=== PATIENT | male | born 1975 | race Caucasian/White ===

== ENCOUNTER 2022-09-01 00:19 | Day surgery (SDC) | payer BC, SELFPAY ==
[2022-08-21 14:56] VITALS: BMI 29.0
[2022-09-01 07:07] VITALS: BP 131/79; PULSE 74; RESP 20; TEMP 36.2; O2SAT 98; BMI 29.0
--- NOTE | 2022-09-01 07:14 | WPDANESEPPF ---
Anes - Initial Pre Proc Eval Procedure: Operation Date: 09/01/22 07:30 Proposed Procedures p Screening Colonoscopy - Liborio Hill MD Date/Time: 09/01/22 07:14 Surgeon: Liborio Hill MD Pre Op Diagnosis: neoplasm screening Patient Data Age: 46 Gender: M Height: 1.85 m Weight: 99.7 kg Last Vital Signs Temp 36.2 C L 09/01/22 07:07 Pulse 74 09/01/22 07:07 Resp 20 09/01/22 07:07 BP 131/79 09/01/22 07:07 Pulse Ox 98 09/01/22 07:07 O2 Del Method Room Air 09/01/22 07:07 Allergies Allergy/AdvReac Type Severity Reaction Status Date / Time No Known Allergies Allergy Verified 09/01/22 07:04 Home Medications Medication Instructions Recorded Confirmed Type omeprazole magnesium 20 mg 20 mg PO DAILY 06/06/22 09/01/22 History capsule,delayed release cetirizine 10 mg tablet (Zyrtec) 10 mg PO DAILY 08/21/22 09/01/22 History multivitamin 1 tablet PO DAILY 08/21/22 09/01/22 History vitamin D3 250 mcg (10,000 1 cap PO DAILY 08/21/22 09/01/22 History unit)-vitamin K2 45 mcg capsule amlodipine 5 mg tablet See Rx Instructions .Route 08/25/22 09/01/22 Rx .COMPLEX #90 tabs losartan 100 mg tablet See Rx Instructions .Route 08/25/22 09/01/22 Rx .COMPLEX #90 tabs nebivolol 10 mg tablet See Rx Instructions .Route 08/25/22 09/01/22 Rx .COMPLEX #90 tabs Patient hx anesthesia problems: none Family hx anesthesia problems: none Results Review: All pre-operative results and documents have been reviewed as part of the pre-operative evaluation. 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[employer] Gender identity (if verbalized by the patient): Male Spiritual care concerns: No Agree to blood products: Yes Anes - Eval Final PreProcedure Day of Procedure 09/01/22 07:14 Patient weight: overweight Heart: regular rate and rhythm Lungs: clear to auscultation and normal air movement Airway: Mallampati scale class II Neurological: alert and oriented Last oral intake: >/= 8 hours ASA classification: II Emergent: no Anesthetic plan: proceed Anesthesia type and monitoring: general GIVS Results Review: All pre-operative results and documents have been reviewed as part of the pre-operative evaluation. Informed Consent: The patient's anesthetic plan and its attendant risks and benefits were discussed with the patient/family/POA. Questions were solicited and answers provided to the satisfaction of the patient/family/POA.
--- NOTE | 2022-09-01 07:28 | PM.HPGS ---
History of Present Illness History of Present Illness Consent: Risks, benefits, and alternatives have been discussed and questions answered. Patient agrees to proceed with procedure. Chief complaint: neoplasm screening Narrative: Phani Oneill is a 46 year old male here for first screening colonoscopy Review of Systems Constitutional: Constitutional: Denies headache(s) and Denies weakness Eyes: Eyes: Denies blurry vision ENT: Reports Normal hearing present, Denies headache(s) and Denies neck pain Cardiovascular: Cardiovascular: Denies chest pain and Denies dyspnea Respiratory: Respiratory: Denies dyspnea Gastrointestinal: Gastrointestinal: Reports no additional gastrointestinal complaints Genitourinary: Genitourinary: Denies dysuria Musculoskeletal: Musculoskeletal: Denies neck pain Integumentary/Breasts: Skin/Breast: Denies dry skin Neurologic: Reports Normal hearing present, Denies headache(s) and Denies weakness Psychiatric: Psychiatric: Denies anxiety Endocrine: Endocrine: Denies change in body appearance Hematologic/Lymphatic: Hematologic/Lymphatic: Denies easy bleeding Allergic/Immunologic: Allergic/Immunologic: Denies urticaria [facility] Past Medical History Medical History (Updated 09/01/22 @ 07:28 by Liborio Hill MD) Allergies Colon cancer screening GERD (gastroesophageal reflux disease) Hypertension Surgical History Surgical History H/O sinus surgery (2006) Family History Family History Father Hypertension Alzheimer disease Mother Hypertension Grandparent Malignant neoplasm of prostate Social History Social History Smoking status: Never smoker Alcohol intake: current Drinks per week: 3 Alcohol use details: vodka Substance use: never Substance use type: does not use Living arrangements: with family Occupation/Education: occupation 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[employer] Gender identity (if verbalized by the patient): Male Spiritual care concerns: No Agree to blood products: Yes Meds Home Medications and Allergies Home Medications Medication Instructions Recorded Confirmed Type omeprazole magnesium 20 mg 20 mg PO DAILY 06/06/22 09/01/22 History capsule,delayed release cetirizine 10 mg tablet (Zyrtec) 10 mg PO DAILY 08/21/22 09/01/22 History multivitamin 1 tablet PO DAILY 08/21/22 09/01/22 History vitamin D3 250 mcg (10,000 1 cap PO DAILY 08/21/22 09/01/22 History unit)-vitamin K2 45 mcg capsule amlodipine 5 mg tablet See Rx Instructions .Route 08/25/22 09/01/22 Rx .COMPLEX #90 tabs losartan 100 mg tablet See Rx Instructions .Route 08/25/22 09/01/22 Rx .COMPLEX #90 tabs nebivolol 10 mg tablet See Rx Instructions .Route 08/25/22 09/01/22 Rx .COMPLEX #90 tabs Allergies Allergy/AdvReac Type Severity Reaction Status Date / Time No Known Allergies Allergy Verified 09/01/22 07:04 Vital Signs Vital Signs - 24 hr 09/01/22 07:07 Temperature 97.1 F L Pulse Rate 74 Respiratory Rate 20 Blood Pressure 131/79 Pulse Oximetry 98 Oxygen Delivery Room Air Exam Const: General: comfortable and no acute distress HENMT: Face/Nose/Sinus: Normal nares present Eyes: General: appearance normal, both eyes and all related structures Neck: Neck: no JVD Resp: Auscultation: clear to auscultation bilaterally Cardio: Rate: regular rate Rhythm: regular rhythm GI: Inspection: non-distended GI Palp: Yes Soft to palpation Skin: General skin exam: normal color Neuro: General: gait normal Speech: normal speech Extrem: General: normal to inspection Psych: Mental Status: mental status grossly normal Assessment and Plan Assessment and plan (1) Colon cancer screening: [place]
[2022-09-01] MEDS: LACTATED RINGERS 1,000 ML 150 ML IV CONT (07:42)
[2022-09-01 07:45] VITALS: BP 102/61; PULSE 77; RESP 15; O2SAT 96
[2022-09-01 07:55] VITALS: BP 110/68; PULSE 75; RESP 17; O2SAT 96
[2022-09-01 08:10] VITALS: BP 121/84; PULSE 75; RESP 19; O2SAT 99
== END 2022-09-01 08:13 | disposition home or self-care (01) ==
PROVIDERS: PCP Nurse Practitioner Family; Visit Provider Internal Medicine Gastroenterology
PROC: 0DJD8ZZ Inspection of Lower Intestinal Tract, Via Natural or Artificial Opening Endoscopic (ICD-10-PCS; CPT 45378; principal; 2022-09-01 07:30)
DX: Z12.11 Encounter for screening for malignant neoplasm of colon (principal); D12.0 Benign neoplasm of cecum; K57.30 Diverticulosis of large intestine without perforation or abscess without bleeding; K64.8 Other hemorrhoids; K64.4 Residual hemorrhoidal skin tags; I10 Essential (primary) hypertension; K21.9 Gastro-esophageal reflux disease without esophagitis
CPT/HCPCS: 45385; 88305; J2704; J7120